=== PATIENT | male | born 1935 | race Hispanic/Latino ===

== ENCOUNTER 2019-09-05 15:17 | Emergency (ER) | payer MEDICARE, MEDICAID ==
[2019-09-05] MEDS ORDERED: Albuterol Sulfate 2.5 mg/3 ml Neb ONE (15:49)
--- NOTE | 2019-09-05 16:04 | RAD ---
RADIOGRAPH CHEST 1 VIEW: DATE: 09/05/2019 HISTORY: 84-year-old male with dyspnea FINDINGS: There are no airspace densities, pulmonary edema, pneumothorax, or cardiomegaly. The lateral costophr enic angles are sharp. IMPRESSION: No acute cardiopulmonary findings.
[2019-09-05] MEDS ORDERED: Dexamethasone 4 mg/ml Vial ONE (16:20)
[2019-09-05 16:23] LABS: #Eosinphils 0.2 thou/uL (0.0-0.7); #Lymphocytes 1.7 thou/uL (1.20-3.40); #Monocytes 0.7 thou/uL (0.11-0.59); #Neutrophils 2.5 thou/uL (1.40-6.50); %Basophils 0.5 % (0.0-1.0); %Eosinophils 4.7 % (0.0-10.0); %Lymphocytes 32.9 % (21.0-51.0); %Neutrophils 48.8 % (42.0-75.0); Hemoglobin 14.1 g/dL (14.0-18.0); Mean Corpuscular HGB CONC 32.7 g/dL (32.0-36.0); Mean Corpuscular Hemoglobin 31.1 pg (27.0-31.0); Mean Corpuscular Volume 95.4 fL (78.0-98.0); Mean Platelet Volume 8.5 fL (7.4-10.4); Platelet Count 192 thou/uL (130-400); RBC Distribution Width 12.1 % (11.5-14.5); Red Blood Cell (RBC) Count 4.53 mill/uL (4.70-6.10)
[2019-09-05] MEDS ORDERED: Magnesium 2 GM/50 ML BAG (IN WATER) ONE (16:25)
[2019-09-05 16:45] LABS: ALT (SGPT) 40 U/L (8-55); AST (SGOT) 41 U/L (5-34); Albumin 4.4 g/dL (3.4-4.8); Alkaline Phosphatase 114 U/L (40-110); Anion Gap 12 mmol/L (10-20); BUN (Urea Nitrogen) 20 mg/dL (8.4-25.7); Bilirubin, Total 0.4 mg/dL (0.2-1.2); CK (CPK) 99 U/L (30-200); Calc. Creatinine Clearance 0 mL/min (70-130); Calcium 8.9 mg/dL (7.8-10.44); Carbon Dioxide 25 mmol/L (23-31); Chloride 107 mmol/L (98-107); Estimated GFR-MDRD 50; Globulin 2.4 g/dL (2.4-3.5); Glucose 106 mg/dL (83-110); Potassium 4.4 mmol/L (3.5-5.1); Protein, Total 6.8 g/dL (5.8-8.1); Sodium 140 mmol/L (136-145)
== END 2019-09-05 18:00 | disposition home or self-care (01) ==
LOC: ERS 15:17
DX: J18.9 Pneumonia, unspecified organism (principal); J45.909 Unspecified asthma, uncomplicated
CPT/HCPCS: 36415; 71045; 80053; 82550; 84484; 85025; 93005; 94644; 96361; 96365; 96375; J1100; J3475; J7611; J7620

== ENCOUNTER 2019-11-24 21:54 | Emergency (ER) | payer MEDICARE, MEDICAID ==
[2019-11-24 22:51] LABS: #Basophils 0.1 thou/uL (0.0-0.2); #Eosinphils 0.4 thou/uL (0.0-0.7); #Lymphocytes 1.9 thou/uL (1.20-3.40); #Monocytes 0.9 thou/uL (0.11-0.59); #Neutrophils 4.9 thou/uL (1.40-6.50); %Basophils 1.3 % (0.0-1.0); %Eosinophils 4.5 % (0.0-10.0); %Lymphocytes 23.5 % (21.0-51.0); %Monocytes 11.1 % (0.0-10.0); %Neutrophils 59.6 % (42.0-75.0); Hemoglobin 14.1 g/dL (14.0-18.0); Mean Corpuscular HGB CONC 33.3 g/dL (32.0-36.0); Mean Corpuscular Hemoglobin 31.8 pg (27.0-31.0); Mean Corpuscular Volume 95.5 fL (78.0-98.0); Mean Platelet Volume 8.2 fL (7.4-10.4); Platelet Count 214 thou/uL (130-400); RBC Distribution Width 12.5 % (11.5-14.5); Red Blood Cell (RBC) Count 4.44 mill/uL (4.70-6.10); White Blood Cell (WBC) Count 8.2 thou/uL (4.8-10.8)
[2019-11-24 23:10] LABS: ALT (SGPT) 14 U/L (8-55); AST (SGOT) 18 U/L (5-34); Albumin 4.4 g/dL (3.4-4.8); Alkaline Phosphatase 100 U/L (40-110); Anion Gap 9 mmol/L (10-20); BUN (Urea Nitrogen) 16 mg/dL (8.4-25.7); Bilirubin, Total 0.7 mg/dL (0.2-1.2); Calc. Creatinine Clearance 0 mL/min (70-130); Calcium 9.6 mg/dL (7.8-10.44); Carbon Dioxide 30 mmol/L (23-31); Chloride 103 mmol/L (98-107); Estimated GFR-MDRD 72; Globulin 2.7 g/dL (2.4-3.5); Glucose 108 mg/dL (83-110); Potassium 4.4 mmol/L (3.5-5.1); Protein, Total 7.1 g/dL (5.8-8.1); Sodium 138 mmol/L (136-145)
[2019-11-24] MEDS ORDERED: Dexamethasone 4 mg/ml Vial ONE (23:53)
== END 2019-11-25 00:27 | disposition home or self-care (01) ==
LOC: ERS 21:54
DX: L29.9 Pruritus, unspecified (principal); J45.909 Unspecified asthma, uncomplicated; Z79.51 Long term (current) use of inhaled steroids
CPT/HCPCS: 36415; 80053; 80061; 82140; 85025; 96372; 99283; J1100

== ENCOUNTER 2019-12-05 13:10 | Emergency (ER) | payer MEDICARE, MEDICAID ==
[2019-12-05] MEDS ORDERED: Iopamidol-370 76% 500 ML 1 ML ONE (13:34)
[2019-12-05 14:25] LABS: #Basophils 0.1 thou/uL (0.0-0.2); #Eosinphils 0.4 thou/uL (0.0-0.7); #Lymphocytes 1.6 thou/uL (1.20-3.40); #Monocytes 1.1 thou/uL (0.11-0.59); #Neutrophils 6.7 thou/uL (1.40-6.50); %Basophils 0.6 % (0.0-1.0); %Eosinophils 4.2 % (0.0-10.0); %Lymphocytes 16.4 % (21.0-51.0); %Neutrophils 67.8 % (42.0-75.0); Mean Corpuscular HGB CONC 34.4 g/dL (32.0-36.0); Mean Corpuscular Hemoglobin 32.8 pg (27.0-31.0); Mean Corpuscular Volume 95.3 fL (78.0-98.0); Mean Platelet Volume 8.6 fL (7.4-10.4); Platelet Count 230 thou/uL (130-400); RBC Distribution Width 12.4 % (11.5-14.5); Red Blood Cell (RBC) Count 4.26 mill/uL (4.70-6.10); White Blood Cell (WBC) Count 9.9 thou/uL (4.8-10.8)
--- NOTE | 2019-12-05 14:40 | RAD ---
PORTABLE CHEST: HISTORY: Epigastric pain and loss of appetite. COMPARISON: 09/05/2019 FINDINGS: Heart size is within normal limits. There are atherosclerotic changes of the aorta. The lungs show so me chronic change without focal infiltrative process. IMPRESSION: No active intrathoracic disease. POS: [facility]
[2019-12-05 14:47] LABS: ALT (SGPT) 11 U/L (8-55); AST (SGOT) 13 U/L (5-34); Albumin 4.3 g/dL (3.4-4.8); Alkaline Phosphatase 105 U/L (40-110); Anion Gap 11 mmol/L (10-20); BUN (Urea Nitrogen) 26 mg/dL (8.4-25.7); Bilirubin, Total 1.1 mg/dL (0.2-1.2); Calc. Creatinine Clearance 0 mL/min (70-130); Calcium 8.6 mg/dL (7.8-10.44); Carbon Dioxide 23 mmol/L (23-31); Chloride 106 mmol/L (98-107); Estimated GFR-MDRD 44; Globulin 2.4 g/dL (2.4-3.5); Glucose 92 mg/dL (83-110); Lipase 24 U/L (8-78); Potassium 3.9 mmol/L (3.5-5.1); Protein, Total 6.7 g/dL (5.8-8.1); Sodium 136 mmol/L (136-145)
[2019-12-05 16:30] LABS: Bilirubin Negative (Negative); Blood, Urine Negative (Negative); Clarity Clear (Clear); Glucose, Urine (Dipstick) Normal (Negative); Leukocyte Negative Leu/uL (Negative); Nitrite Negative (Negative); Protein, Urine (Dipstick) Negative (Neg-Trace); Urobilinogen Normal mg/dL (Less than 2)
--- NOTE | 2019-12-05 18:22 | CT ---
CT ABDOMEN AND PELVIS WITH IV CONTRAST: History: Epigastric abdominal pain. FINDINGS: The lung bases are unremarkable. There is a 12 mm cyst in the liver. No calcified gallstones are seen . The spleen, pancreas, adrenal glands, and left kidney are normal. A 5 mm nonobstructing calculus is seen in the right kidney. No free air, free fluid, or lymphadenopathy is seen in the abdomen or pelvis. There are vascular calc ifications without evidence of aneurysmal dilatation of the abdominal aorta. There are degenerative c hanges in the spine. A small hiatal hernia is present. The small bowel loops are not abnormally dilated. An abnormal appen osmany is not visualized. The prostate is enlarged. There are fat containing inguinal hernias, left larger than right. IMPRESSION: 1. Small hiatal hernia. 2. Hepatic cyst. 3. Nonobstructing 5 mm right renal calculus. 4. Prostatic enlargement. POS: [facility]
== END 2019-12-05 17:59 | disposition home or self-care (01) ==
LOC: ERS 13:10
DX: K44.9 Diaphragmatic hernia without obstruction or gangrene (principal); J44.9 Chronic obstructive pulmonary disease, unspecified
CPT/HCPCS: 36415; 71045; 74177; 80053; 81003; 83690; 84484; 85025; 93005; 96360; 96372; J0500; Q9967

== ENCOUNTER 2020-02-08 03:08 | Emergency (ER) | payer MEDICARE, MEDICAID ==
[2020-02-08] MEDS ORDERED: Albuterol Sulfate 2.5 mg/3 ml Neb ONE (03:38)
[2020-02-08] MEDS ORDERED: Albuterol 200 PUFF (6.7GM INHALER) ONE (03:41)
[2020-02-08 04:16] LABS: ALT (SGPT) 13 U/L (8-55); AST (SGOT) 15 U/L (5-34); Alkaline Phosphatase 91 U/L (40-110); Anion Gap 11 mmol/L (10-20); BUN (Urea Nitrogen) 15 mg/dL (8.4-25.7); Bilirubin, Total 0.6 mg/dL (0.2-1.2); Calc. Creatinine Clearance 0 mL/min (70-130); Calcium 8.9 mg/dL (7.8-10.44); Carbon Dioxide 26 mmol/L (23-31); Chloride 106 mmol/L (98-107); Estimated GFR-MDRD 76; Globulin 2.7 g/dL (2.4-3.5); Glucose 109 mg/dL (83-110); Protein, Total 6.7 g/dL (5.8-8.1); Sodium 139 mmol/L (136-145)
[2020-02-08 04:24] LABS: #Basophils 0.1 thou/uL (0.0-0.2); #Eosinphils 0.4 thou/uL (0.0-0.7); #Lymphocytes 1.8 thou/uL (1.20-3.40); #Monocytes 0.8 thou/uL (0.11-0.59); #Neutrophils 4.5 thou/uL (1.40-6.50); %Eosinophils 5.4 % (0.0-10.0); %Lymphocytes 24.3 % (21.0-51.0); %Monocytes 10.6 % (0.0-10.0); %Neutrophils 58.8 % (42.0-75.0); Hemoglobin 14.3 g/dL (14.0-18.0); Mean Corpuscular HGB CONC 32.5 g/dL (32.0-36.0); Mean Corpuscular Hemoglobin 30.8 pg (27.0-31.0); Mean Corpuscular Volume 94.8 fL (78.0-98.0); Mean Platelet Volume 9.1 fL (7.4-10.4); Platelet Count 182 thou/uL (130-400); RBC Distribution Width 11.8 % (11.5-14.5); Red Blood Cell (RBC) Count 4.63 mill/uL (4.70-6.10); White Blood Cell (WBC) Count 7.6 thou/uL (4.8-10.8)
[2020-02-08] MEDS ORDERED: predniSONE 20 MG TAB ONE (04:43)
--- NOTE | 2020-02-08 07:16 | RAD ---
SINGLE VIEW CHEST: Date: 02/08/2020 COMPARISON: 12/05/2019. HISTORY: Dyspnea. FINDINGS: Single view of the chest shows a normal sized cardiomediastinal silhouette. There is no evidence of c onsolidation, mass, or pleural effusion. Degenerative changes are seen in the spine. IMPRESSION: No evidence of acute cardiopulmonary disease. POS: [facility]
== END 2020-02-08 05:13 | disposition home or self-care (01) ==
LOC: ERS 03:08
DX: R06.2 Wheezing (principal); R06.00 Dyspnea, unspecified; J45.909 Unspecified asthma, uncomplicated
CPT/HCPCS: 71045; 80053; 83880; 84484; 85025; 93005; 99285; J7512; 36415; J7611

== ENCOUNTER 2021-07-17 22:43 | Emergency (ER) | payer MEDICARE, MEDICAID ==
[2021-07-17 23:38] LABS: #Eosinphils 0.1 thou/uL (0.0-0.7); #Lymphocytes 0.5 thou/uL (1.20-3.40); #Monocytes 0.3 thou/uL (0.11-0.59); #Neutrophils 14.9 thou/uL (1.40-6.50); %Eosinophils 0.4 % (0.0-10.0); %Lymphocytes 2.9 % (21.0-51.0); %Monocytes 1.8 % (0.0-10.0); Hemoglobin 13.6 g/dL (14.0-18.0); Mean Corpuscular HGB CONC 32.8 g/dL (32.0-36.0); Mean Corpuscular Hemoglobin 32.2 pg (27.0-31.0); Mean Corpuscular Volume 97.9 fL (78.0-98.0); Mean Platelet Volume 8.3 fL (7.4-10.4); Platelet Count 215 thou/uL (130-400); RBC Distribution Width 12.7 % (11.5-14.5); Red Blood Cell (RBC) Count 4.22 mill/uL (4.70-6.10); White Blood Cell (WBC) Count 15.7 thou/uL (4.8-10.8)
[2021-07-18 00:02] LABS: ALT (SGPT) 13 U/L (8-55); AST (SGOT) 12 U/L (5-34); Alkaline Phosphatase 80 U/L (40-110); Anion Gap 13 mmol/L (10-20); BUN (Urea Nitrogen) 22 mg/dL (8.4-25.7); Bilirubin, Total 0.4 mg/dL (0.2-1.2); Calc. Creatinine Clearance 0 mL/min (70-130); Calcium 8.5 mg/dL (7.8-10.44); Carbon Dioxide 21 mmol/L (23-31); Chloride 107 mmol/L (98-107); Globulin 2.9 g/dL (2.4-3.5); Glucose 151 mg/dL (83-110); Potassium 4.3 mmol/L (3.5-5.1); Protein, Total 6.9 g/dL (5.8-8.1); Sodium 137 mmol/L (136-145)
== END 2021-07-18 03:50 | disposition home or self-care (01) ==
LOC: ERS 22:43
DX: J45.901 Unspecified asthma with (acute) exacerbation (principal)
CPT/HCPCS: 36415; 71045; 80053; 83880; 84484; 85025; 93005

== ENCOUNTER 2021-10-09 11:51 | Emergency (ER) | payer MEDICARE, MEDICAID ==
[2021-10-09] MEDS ORDERED: methylPREDNISolone Sod Succ 40 MG VIAL ONE (12:27)
[2021-10-09 12:28] LABS: #Basophils 0.1 thou/uL (0.0-0.2); #Eosinphils 0.3 thou/uL (0.0-0.7); #Lymphocytes 1.4 thou/uL (1.20-3.40); #Monocytes 0.5 thou/uL (0.11-0.59); #Neutrophils 3.9 thou/uL (1.40-6.50); %Basophils 0.9 % (0.0-1.0); %Eosinophils 4.4 % (0.0-10.0); %Lymphocytes 23.2 % (21.0-51.0); %Monocytes 8.6 % (0.0-10.0); Hemoglobin 14.4 g/dL (14.0-18.0); Mean Corpuscular HGB CONC 32.5 g/dL (32.0-36.0); Mean Corpuscular Hemoglobin 31.8 pg (27.0-31.0); Mean Corpuscular Volume 97.8 fL (78.0-98.0); Mean Platelet Volume 8.2 fL (7.4-10.4); Platelet Count 212 thou/uL (130-400); RBC Distribution Width 12.3 % (11.5-14.5); Red Blood Cell (RBC) Count 4.51 mill/uL (4.70-6.10); White Blood Cell (WBC) Count 6.2 thou/uL (4.8-10.8)
[2021-10-09] MEDS ORDERED: Albuterol 200 PUFF (6.7GM INHALER) ONE (12:39)
[2021-10-09 12:45] LABS: ALT (SGPT) 10 U/L (8-55); AST (SGOT) 12 U/L (5-34); Alkaline Phosphatase 87 U/L (40-110); Anion Gap 12 mmol/L (10-20); BUN (Urea Nitrogen) 20 mg/dL (8.4-25.7); Bilirubin, Total 1.3 mg/dL (0.2-1.2); Calc. Creatinine Clearance 0 mL/min (70-130); Calcium 8.7 mg/dL (7.8-10.44); Carbon Dioxide 24 mmol/L (23-31); Chloride 106 mmol/L (98-107); Glucose 126 mg/dL (83-110); Potassium 4.2 mmol/L (3.5-5.1); Sodium 138 mmol/L (136-145)
== END 2021-10-09 14:27 | disposition home or self-care (01) ==
LOC: ERS 11:51
DX: J45.901 Unspecified asthma with (acute) exacerbation (principal); Z79.899 Other long term (current) drug therapy
CPT/HCPCS: 36415; 71045; 80053; 83880; 84484; 85025; 87081; 87430; 93005; 96374; J2920

== ENCOUNTER 2021-10-15 02:38 | Emergency (ER) | payer MEDICARE, MEDICAID ==
[2021-10-15 03:16] LABS: #Eosinphils 0.2 thou/uL (0.0-0.7); #Lymphocytes 1.9 thou/uL (1.20-3.40); #Monocytes 1.2 thou/uL (0.11-0.59); #Neutrophils 6.9 thou/uL (1.40-6.50); %Basophils 0.3 % (0.0-1.0); %Eosinophils 1.8 % (0.0-10.0); %Lymphocytes 18.5 % (21.0-51.0); %Monocytes 11.6 % (0.0-10.0); %Neutrophils 67.8 % (42.0-75.0); Hemoglobin 14.4 g/dL (14.0-18.0); Mean Corpuscular HGB CONC 33.1 g/dL (32.0-36.0); Mean Corpuscular Hemoglobin 32.4 pg (27.0-31.0); Mean Corpuscular Volume 97.9 fL (78.0-98.0); Mean Platelet Volume 8.5 fL (7.4-10.4); Platelet Count 206 thou/uL (130-400); RBC Distribution Width 12.5 % (11.5-14.5); Red Blood Cell (RBC) Count 4.43 mill/uL (4.70-6.10); White Blood Cell (WBC) Count 10.1 thou/uL (4.8-10.8)
[2021-10-15 03:37] LABS: ALT (SGPT) 8 U/L (8-55); AST (SGOT) 9 U/L (5-34); Albumin 3.7 g/dL (3.4-4.8); Alkaline Phosphatase 69 U/L (40-110); Anion Gap 12 mmol/L (10-20); BUN (Urea Nitrogen) 28 mg/dL (8.4-25.7); Bilirubin, Total 0.9 mg/dL (0.2-1.2); Calc. Creatinine Clearance 0 mL/min (70-130); Calcium 7.9 mg/dL (7.8-10.44); Carbon Dioxide 25 mmol/L (23-31); Chloride 103 mmol/L (98-107); Globulin 2.6 g/dL (2.4-3.5); Glucose 102 mg/dL (83-110); Potassium 3.9 mmol/L (3.5-5.1); Protein, Total 6.3 g/dL (5.8-8.1); Sodium 136 mmol/L (136-145)
[2021-10-15] MEDS ORDERED: methylPREDNISolone Sod Succ/PF 125 MG/2 ML VIAL ONE (03:37)
== END 2021-10-15 04:55 | disposition home or self-care (01) ==
LOC: ERS 02:38
DX: J45.901 Unspecified asthma with (acute) exacerbation (principal)
CPT/HCPCS: 36415; 71045; 80053; 83880; 84484; 85025; 93005; 94640; 96374; J2930; J7620

== ENCOUNTER 2021-11-09 04:17 | Emergency (ER) | payer MEDICAID, MEDICARE ==
[2021-11-09] MEDS ORDERED: Albuterol Sulfate 2.5 mg/3 ml Neb ONE (04:28)
[2021-11-09] MEDS ORDERED: methylPREDNISolone Sod Succ/PF 125 MG/2 ML VIAL ONE (04:46)
== END 2021-11-09 06:00 | disposition home or self-care (01) ==
LOC: ERS 04:17
DX: J45.901 Unspecified asthma with (acute) exacerbation (principal); Z79.899 Other long term (current) drug therapy
CPT/HCPCS: 94644; 96374; J2930; J7611

== ENCOUNTER 2022-06-27 20:42 | Emergency (ER) | payer MEDICAID, MEDICARE ==
[2022-06-27] MEDS ORDERED: methylPREDNISolone Sod Succ/PF 125 MG/2 ML VIAL ONE (21:24)
[2022-06-27 21:33] LABS: #Basophils 0.1 thou/uL (0.0-0.2); #Eosinphils 0.4 thou/uL (0.0-0.7); #Lymphocytes 1.8 thou/uL (1.20-3.40); #Monocytes 0.7 thou/uL (0.11-0.59); #Neutrophils 4.5 thou/uL (1.40-6.50); %Eosinophils 4.8 % (0.0-10.0); %Lymphocytes 23.7 % (21.0-51.0); %Neutrophils 60.5 % (42.0-75.0); Hemoglobin 14.3 g/dL (14.0-18.0); Mean Platelet Volume 9.3 fL (7.4-10.4); Platelet Count 187 thou/uL (130-400); RBC Distribution Width 12.5 % (11.5-14.5); Red Blood Cell (RBC) Count 4.48 mill/uL (4.70-6.10); White Blood Cell (WBC) Count 7.4 thou/uL (4.8-10.8)
[2022-06-27 21:54] LABS: ALT (SGPT) 10 U/L (8-55); AST (SGOT) 18 U/L (5-34); Albumin 4.4 g/dL (3.4-4.8); Alkaline Phosphatase 85 U/L (40-110); Anion Gap 13 mmol/L (10-20); BUN (Urea Nitrogen) 14 mg/dL (8.4-25.7); Calc. Creatinine Clearance 0 mL/min (70-130); Calcium 8.9 mg/dL (7.8-10.44); Carbon Dioxide 24 mmol/L (23-31); Chloride 108 mmol/L (98-107); Estimated GFR 66; Globulin 2.9 g/dL (2.4-3.5); Glucose 100 mg/dL (83-110); Potassium 4.2 mmol/L (3.5-5.1); Protein, Total 7.3 g/dL (5.8-8.1); Sodium 141 mmol/L (136-145)
[2022-06-27] MEDS ORDERED: Aspirin Chewable 81 MG TAB ONE (22:42)
[2022-06-27] MEDS ORDERED: cefTRIAXone\\ROCEPHIN 2 GM VIAL ONE (22:42)
[2022-06-27] MEDS ORDERED: hydrALAZINE 20 MG/ML VIAL ONE (22:55)
[2022-06-27 23:39] LABS: SARS-CoV-2 NAA Rapid Test Not Detected (NotDetected)
== END 2022-06-27 23:42 | disposition home or self-care (01) ==
LOC: ERS 20:42
DX: J18.9 Pneumonia, unspecified organism (principal); I10 Essential (primary) hypertension; J45.901 Unspecified asthma with (acute) exacerbation; Z20.822 Contact with and (suspected) exposure to COVID-19
CPT/HCPCS: 71045; 80053; 83880; 84484; 85025; 87040; 93005; 94640; U0002; 36415; 96365; 96375; J0360; J0696; J2930; J7620

== ENCOUNTER 2022-06-28 00:55 | Observation (INO) | payer MEDICARE, MEDICAID ==
[2022-06-28] MEDS ORDERED: Ondansetron ODT 4 MG TAB SL PRN (02:45)
[2022-06-28] MEDS ORDERED: Ondansetron PF 4 MG/2 ML Vial IVP PRN (02:45)
[2022-06-28 03:23] VITALS: BMI 25.6
[2022-06-28] MEDS ORDERED: Acetaminophen 650 MG Suppository PR PRN (04:36)
[2022-06-28] MEDS: Acetaminophen 325 MG TAB PO PRN ×2 (05:54→10:05)
[2022-06-28] MEDS ORDERED: Enoxaparin Sodium 40 MG/0.4 ML SYRINGE SC SCH (09:00)
[2022-06-28] MEDS ORDERED: methylPREDNISolone Sod Succ 40 MG VIAL IVP SCH (09:00)
[2022-06-28] MEDS ORDERED: Iopamidol-370 76% 500 ML 1 ML ONE (15:07)
[2022-06-28 16:23] VITALS: BP 147/85; TEMP 97.7
[2022-06-28] MEDS ORDERED: cefTRIAXone\\ROCEPHIN 1 GM in Sodium Chloride 0.9% 100 ML IVPB SCH (21:00)
[2022-06-28] MEDS ORDERED: Azithromycin 500 MG in Sodium Chloride 0.9% 250 ML 250 ML IVPB SCH (21:00)
== END 2022-06-28 18:05 | disposition home or self-care (01) ==
LOC: ERS 00:55 → MSONC 02:02
PROVIDERS: ADMIT Internal Medicine; ATTEND Internal Medicine
DX: J45.901 Unspecified asthma with (acute) exacerbation (principal); J18.9 Pneumonia, unspecified organism; Z79.2 Long term (current) use of antibiotics; Z79.52 Long term (current) use of systemic steroids; Z20.822 Contact with and (suspected) exposure to COVID-19
CPT/HCPCS: 71275; 84484; 94640; 96372; 96374; G0378; J1650; J2920; J7620; Q9967

== ENCOUNTER 2022-08-31 17:44 | Emergency (ER) | payer MEDICARE, MEDICAID ==
[2022-08-31 18:15] LABS: #Basophils 0.1 thou/uL (0.0-0.2); #Eosinphils 0.4 thou/uL (0.0-0.7); #Lymphocytes 1.1 thou/uL (1.20-3.40); #Monocytes 0.8 thou/uL (0.11-0.59); #Neutrophils 7.2 thou/uL (1.40-6.50); %Basophils 0.6 % (0.0-1.0); %Eosinophils 4.5 % (0.0-10.0); %Lymphocytes 11.3 % (21.0-51.0); %Monocytes 8.6 % (0.0-10.0); Hemoglobin 13.7 g/dL (14.0-18.0); Mean Corpuscular HGB CONC 32.9 g/dL (32.0-36.0); Mean Corpuscular Volume 97.5 fl (78.0-98.0); Mean Platelet Volume 9.1 fL (7.4-10.4); Platelet Count 191 thou/uL (130-400); RBC Distribution Width 12.3 % (11.5-14.5); Red Blood Cell (RBC) Count 4.27 mill/uL (4.70-6.10); White Blood Cell (WBC) Count 9.7 thou/uL (4.8-10.8)
[2022-08-31] MEDS ORDERED: Albuterol Sulfate 2.5 mg/3 ml Neb ONE (18:15)
[2022-08-31] MEDS ORDERED: Dexamethasone 10 MG/ML VIAL ONE (18:31)
[2022-08-31 18:36] LABS: ALT (SGPT) 11 U/L (8-55); AST (SGOT) 12 U/L (5-34); Albumin 4.1 g/dL (3.4-4.8); Alkaline Phosphatase 87 U/L (40-110); Anion Gap 10 mmol/L (10-20); BUN (Urea Nitrogen) 17 mg/dL (8.4-25.7); Bilirubin, Total 0.8 mg/dL (0.2-1.2); Calc. Creatinine Clearance 0 mL/min (70-130); Calcium 8.8 mg/dL (7.8-10.44); Carbon Dioxide 24 mmol/L (23-31); Chloride 110 mmol/L (98-107); Estimated GFR 54; Globulin 2.7 g/dL (2.4-3.5); Glucose 114 mg/dL (83-110); Potassium 4.3 mmol/L (3.5-5.1); Protein, Total 6.8 g/dL (5.8-8.1); Sodium 140 mmol/L (136-145)
[2022-08-31 19:30] LABS: SARS-CoV-2 NAA Rapid Test Not Detected (NotDetected)
[2022-08-31] MEDS ORDERED: Albuterol Sulfate 2.5 mg/0.5 ml Neb ONE (19:48)
== END 2022-08-31 20:44 | disposition home or self-care (01) ==
LOC: ERS 17:44
DX: J45.901 Unspecified asthma with (acute) exacerbation (principal); J02.8 Acute pharyngitis due to other specified organisms; Z20.822 Contact with and (suspected) exposure to COVID-19
CPT/HCPCS: 0240U; 71045; 80053; 83880; 84484; 85025; 87081; 87430; 94640; 96374; J1100; J7611; J7620